=== PATIENT | male | born 1965 | race Caucasian/White ===

== ENCOUNTER 2018-11-11 15:12 | Emergency (ER) | payer MEDICAID, OTHER ==
[2018-11-11 15:36] VITALS: BP 150/88
--- NOTE | 2018-11-11 16:35 | XRAY Report ---
Reason: Trauma Procedure Date: 11/11/2018 Accession Number: [id number] / [id number] Procedure: XR - Ankle 3 View LT CPT Code: FULL RESULT: EXAM: LEFT ANKLE RADIOGRAPHY EXAM DATE: 11/11/2018 04:13 PM. CLINICAL HISTORY: Trauma. COMPARISON: None. TECHNIQUE: 3 views. FINDINGS: Bones: No acute fracture identified. Joints: Normal. No effusion. No subluxation. The ankle mortise is normally aligned. Soft Tissues: Mild soft tissue swelling medially. IMPRESSION: No acute osseus abnormality. RADIA
--- NOTE | 2018-11-11 16:49 | ED Physician Documentation ---
PD HPI LOWER EXT INJURY - Stated complaint Stated Complaint: LT ANKLE PX - Chief complaint Chief Complaint: Ext Problem - History obtained from History obtained from: Patient - History of Present Illness PD HPI LOW EXT INJURY LOCATION: Left (Branch fell on his leg followed by a book 2 weeks ago and he has persistent pain above the medial left ankle. 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 12/16/15 Hydrocodone/Acetaminophen 1 - 2 each PO Q6H PRN #14 tablet 12/16/15 [Hydrocodon-Acetaminophen 5-325] Ondansetron Odt [Zofran] 4 mg TL Q6H PRN #10 tablet 12/16/15 Hydrocodone/Acetaminophen 1 - 2 each PO Q6H PRN #10 tablet 11/11/18 [Hydrocodon-Acetaminophen 5-325] Meloxicam [Mobic] 7.5 mg PO BID PRN #10 tablet 11/11/18 - Allergies Allergies/Adverse Reactions: Allergies Allergy/AdvReac Type Severity Reaction Status Date / Time No Known Drug Allergies Allergy Verified 12/16/15 17:37 - Social History Does the pt smoke?: Yes Smoking Status: Current every day smoker Does the pt drink ETOH?: Yes Does the pt have substance abuse?: No - Immunizations Immunizations are current?: Yes PD ED PE NORMAL - Vitals Vital signs reviewed: Yes - General General: Alert and oriented X 3, No acute distress - Extremities Extremities: Other (Left ankle is tender and swollen just above the medial malleolus, no limited range of motion, no calcaneal or Achilles tenderness.) - Neuro Neuro: Alert and oriented X 3, Normal speech Results - Vitals Vitals: Vital Signs - 24 hr 11/11/18 15:33 Temperature 37.0 C Heart Rate 101 H Respiratory 18 Rate Blood Pressure 150/88 H O2 Saturation 98 Oxygen O2 Source Room air - Rads (name of study) 3v L ankle Radiology: EMP read contemporaneously (No frx) Departure - Departure Disposition: 01 Home, Self Care Clinical Impression: Contusion of left ankle Qualifiers: Encounter type: initial encounter Qualified Code(s): S90.02XA - Contusion of left ankle, initial encounter Condition: Good Record reviewed to determine appropriate education?: Yes Instructions: ED Contusion Foot Prescriptions: Hydrocodone/Acetaminophen [Hydrocodon-Acetaminophen 5-325] 1 - 2 each PO Q6H PRN #10 tablet PRN Reason: pain Meloxicam [Mobic] 7.5 mg PO BID PRN #10 tablet PRN Reason: Pain Comments: Call your doctor to arrange a follow-up appointment, make the next available appointment. In the interim, return anytime if worse or if new symptoms develop. Your blood pressure was elevated today on check into the emergency department. This does not mean that you have hypertension, it is a common phenomenon to come to the emergency department and have elevated blood pressure. I recommend that you see your primary care physician within the week to have it rechecked when you are feeling better. Forms: Activity restrictions
== END 2018-11-11 17:06 | disposition home or self-care (01) ==
LOC: ED 15:12
DX: S90.02XA Contusion of left ankle, initial encounter (principal); W20.8XXA Other cause of strike by thrown, projected or falling object, initial encounter; Y93.89 Activity, other specified; R03.0 Elevated blood-pressure reading, without diagnosis of hypertension; F17.200 Nicotine dependence, unspecified, uncomplicated
CPT/HCPCS: 99283